=== PATIENT | male | born 1965 | race African-American/Black ===

== ENCOUNTER 2025-05-23 14:55 | Inpatient (IN) | payer MEDICAID ==
[2025-05-23] VITALS (13 sets, daily range): BP systolic 105–131; BP diastolic 81–93; PULSE 87–99; RESP 10–15; TEMP 36.7; O2SAT 97–100
[~2025-05-23] VITALS: Ht 170.2 cm; Wt 77.2 kg
[2025-05-23 15:32] LABS: BASOPHILS % 0.3 % (0.0-2.0); EOSINOPHILS % 0.4 % (0.0-5.0); HEMATOCRIT. 38.0 % (42.0-52.0); HEMOGLOBIN. 12.8 g/dL (14.0-18.0); LYMPHOCYTES % 11.8 % (20.0-50.0); MEAN PLATELET VOLUME 8.3 fl (7.4-10.4); MONOCYTES % 12.6 % (2.0-8.0); NEUTROPHILS % 74.9 % (40.0-76.0); PLATELET 229 x1000/uL (130-400); RED BLOOD CELL COUNT 4.41 mill/uL (4.7-6.1); RED CELL DISTRIBUTION WIDTH 12.8 % (11.6-14.6)
[2025-05-23] MEDS: SODIUM CHLORIDE 0.9% 1,000 ML IV ONE ×2 (15:36→17:28)
[2025-05-23 15:45] LABS: CREATININE 1.7 mg/dL (0.6-1.3); UREA NITROGEN BLOOD 16 mg/dL (9-23)
[2025-05-23 15:47] LABS: ASPARTATE AMINOTRANSFERASE 12 IU/L (<34); BILIRUBIN DIRECT 0.4 mg/dL (<=3.0); BILIRUBIN TOTAL 1.0 mg/dL (0.1-1.0)
[2025-05-23 15:48] LABS: PROTEIN TOTAL 6.3 g/dL (6.0-8.3)
[2025-05-23 15:53] LABS: TROPONIN I HIGH SENSITIVITY 491 ng/L (3.0-53)
[2025-05-23] MEDS: ENOXAPARIN 80MG/0.8ML SYR SUBCUT ONE (17:28)
[2025-05-23] MEDS: ASPIRIN 325MG TABLET PO ONE (17:28)
[2025-05-23] MEDS ORDERED: LIDOCAINE HCL 1% 20ML VIAL ONE (19:01)
[2025-05-23] MEDS ORDERED: HEPARIN 1000 UNITS/ML 10ML ONE ×2 (19:01→20:46)
[2025-05-23] MEDS ORDERED: IODIXANOL 320MG/ML 100 ML BOTTLE IV ONE (19:02)
[2025-05-23] MEDS ORDERED: IODIXANOL 320 MG/ML 150ML BOTTLE IV ONE (19:20)
[2025-05-23] MEDS ORDERED: MIDAZOLAM HCL 2 MG/2 ML VIAL ONE (19:38)
[2025-05-23] MEDS ORDERED: DIPHENHYDRAMINE 50MG/ML VIAL ONE (19:38)
[2025-05-23] MEDS ORDERED: FENTANYL CITRATE/PF 50MCG/ML 2ML VIAL ONE (19:38)
[2025-05-23] MEDS ORDERED: ATROPINE SULFATE 1MG/10ML SYR IV PRN (21:00)
[2025-05-23] MEDS: SODIUM CHL 0.45% + KCL 20MEQ/L 1,000 ML IV ONE (23:26)
[2025-05-24] VITALS (98 sets, daily range): BP systolic 107–166; BP diastolic 78–117; PULSE 87–110; RESP 10–22; TEMP 36.5–37.8; O2SAT 86–100
[2025-05-24] MEDS ORDERED: IOHEXOL-350 100 ML BOTTLE ONE (00:08)
[2025-05-24 06:59] LABS: BASOPHILS % 0.3 % (0.0-2.0); EOSINOPHILS % 0.3 % (0.0-5.0); HEMATOCRIT. 39.0 % (42.0-52.0); HEMOGLOBIN. 13.1 g/dL (14.0-18.0); LYMPHOCYTES % 16.4 % (20.0-50.0); MEAN PLATELET VOLUME 8.6 fl (7.4-10.4); MONOCYTES % 12.5 % (2.0-8.0); NEUTROPHILS % 70.5 % (40.0-76.0); PLATELET 228 x1000/uL (130-400); RED BLOOD CELL COUNT 4.49 mill/uL (4.7-6.1); RED CELL DISTRIBUTION WIDTH 13.3 % (11.6-14.6)
[2025-05-24 07:09] LABS: INR 1.1
[2025-05-24 07:11] LABS: CREATININE 1.2 mg/dL (0.6-1.3); UREA NITROGEN BLOOD 15 mg/dL (9-23)
[2025-05-24] MEDS: PANTOPRAZOLE SODIUM 40 MG/VIAL IV SCH (09:55)
[2025-05-24] MEDS: ENOXAPARIN 100MG/ML SYR SUBCUT SCH (09:56)
[2025-05-24] MEDS ORDERED: ASPI-1079 PO (19:05)
[2025-05-24] MEDS ORDERED: AMLO10TA80 PO (19:05)
[2025-05-24] MEDS ORDERED: FLUO20TA29 PO (19:05)
[2025-05-24] MEDS ORDERED: PALI1.5T2 PO (19:05)
[2025-05-24] MEDS ORDERED: PALI3TAB5 PO (19:05)
[2025-05-24] MEDS ORDERED: FAMO20TA8 PO (19:05)
[2025-05-24] MEDS ORDERED: DORZ10DR8 EACHEYE (19:05)
[2025-05-24] MEDS ORDERED: LATA2.5D7 EACHEYE (19:05)
[2025-05-24] MEDS ORDERED: LISI20TA31 PO (19:05)
[2025-05-24] MEDS ORDERED: ATOR20TA65 PO (19:05)
[2025-05-24 22:01] LABS: *AMPHETAMINES SCREEN URINE NEGATIVE (NEGATIVE); *BARBITURATES SCREEN URINE NEGATIVE (NEGATIVE); *BENZODIAZEPINES SCREEN URINE NEGATIVE (NEGATIVE); *COCAINE SCREEN URINE NEGATIVE (NEGATIVE); CANNABINOID URINE SCREEN NEGATIVE (NEGATIVE); ECSTASY MDMA SCREEN URINE NEGATIVE (NEGATIVE); METHADONE URINE SCREEN NEGATIVE (NEGATIVE); OPIATES URINE SCREEN NEGATIVE (NEGATIVE); PHENCYCLIDINE URINE SCREEN NEGATIVE (NEGATIVE)
[2025-05-24] MEDS: DORZOLAMIDE 2% OPHTH 10 ML BOTTLE EACHEYE SCH (22:48)
[2025-05-24] MEDS: LATANOPROST 0.005% OPHTH DROPS 2.5ML EACHEYE SCH (22:48)
[2025-05-24 23:48] LABS: CLARITY URINE CLEAR (CLEAR); COLOR URINE YELLOW (YELLOW); SPECIFIC GRAVITY URINE 1.019 (1.005-1.030)
[2025-05-24 23:49] LABS: GLUCOSE URINE NEGATIVE (NEGATIVE); KETONES URINE NEGATIVE (NEGATIVE); LEUKOCYTE ESTERASE URINE NEGATIVE (NEGATIVE); NITRITE URINE NEGATIVE (NEGATIVE); OCCULT BLOOD URINE 1+ (NEGATIVE); PH URINE 6.5 (4.5-8.0); PROTEIN URINE NEGATIVE (NEGATIVE); UROBILINOGEN URINE >8.0 E.U./dL (0.2-1.0)
[2025-05-25] VITALS (37 sets, daily range): BP systolic 113–160; BP diastolic 82–104; PULSE 86–108; RESP 13–26; TEMP 36.9–38.2; O2SAT 88–98
[2025-05-25 00:16] LABS: BACTERIA URINE NONE SEEN; RBC URINE 0-2 /hpf (0-2); SQUAMOUS EPITHELIAL CELL URINE NONE SEEN /lpf (RARE/1+); WBC URINE NONE SEEN /hpf (0-2); YEAST URINE NONE SEEN
[2025-05-25] MEDS: ACETAMINOPHEN 325MG TABLET PO PRN (00:20)
[2025-05-25] MEDS ORDERED: AMLODIPINE 10MG TABLET PO SCH (09:00)
[2025-05-25] MEDS ORDERED: PALIPERIDONE 1.5 MG PO SCH (09:00)
[2025-05-25] MEDS ORDERED: PALIPERIDONE 3 MG PO SCH (09:00)
[2025-05-25] MEDS: FLUOXETINE HCL 20MG CAPSULE PO SCH (09:00)
[2025-05-25] MEDS: ENOXAPARIN 80MG/0.8ML SYR SUBCUT SCH (09:01)
[2025-05-26] VITALS (7 sets, daily range): BP systolic 117–153; BP diastolic 81–119; PULSE 84–112; RESP 14–17; TEMP 36.7–37.1; O2SAT 92–100
[2025-05-26 11:41] LABS: BASOPHILS % 0.5 % (0.0-2.0); EOSINOPHILS % 1.8 % (0.0-5.0); HEMATOCRIT. 38.8 % (42.0-52.0); HEMOGLOBIN. 13.2 g/dL (14.0-18.0); LYMPHOCYTES % 18.6 % (20.0-50.0); MEAN PLATELET VOLUME 9.0 fl (7.4-10.4); MONOCYTES % 12.8 % (2.0-8.0); NEUTROPHILS % 66.3 % (40.0-76.0); PLATELET 259 x1000/uL (130-400); RED BLOOD CELL COUNT 4.56 mill/uL (4.7-6.1); RED CELL DISTRIBUTION WIDTH 12.7 % (11.6-14.6)
[2025-05-26 12:10] LABS: CREATININE 1.0 mg/dL (0.6-1.3); UREA NITROGEN BLOOD 11 mg/dL (9-23)
[2025-05-26] MEDS: POTASSIUM CHLORIDE 20MEQ TABLET SR PO SCH (15:04)
[2025-05-27 00:08] VITALS: BP 143/94; PULSE 93; RESP 17; TEMP 36.7; O2SAT 98
[2025-05-27 04:27] VITALS: BP 121/87; PULSE 90; RESP 12; TEMP 36.8; O2SAT 97
[2025-05-27 07:21] LABS: CREATININE 1.0 mg/dL (0.6-1.3); UREA NITROGEN BLOOD 10 mg/dL (9-23)
[2025-05-27 07:24] LABS: BASOPHILS % 0.6 % (0.0-2.0); EOSINOPHILS % 2.3 % (0.0-5.0); HEMATOCRIT. 40.3 % (42.0-52.0); HEMOGLOBIN. 13.4 g/dL (14.0-18.0); LYMPHOCYTES % 23.6 % (20.0-50.0); MEAN PLATELET VOLUME 8.9 fl (7.4-10.4); MONOCYTES % 11.8 % (2.0-8.0); NEUTROPHILS % 61.7 % (40.0-76.0); PLATELET 296 x1000/uL (130-400); RED BLOOD CELL COUNT 4.71 mill/uL (4.7-6.1); RED CELL DISTRIBUTION WIDTH 12.6 % (11.6-14.6)
[2025-05-27 08:00] VITALS: BP 125/93; PULSE 87; RESP 13; TEMP 36.9; O2SAT 98
[2025-05-27 12:00] VITALS: BP 131/101; PULSE 91; RESP 15; TEMP 36.7; O2SAT 99
[2025-05-27 16:00] VITALS: BP 124/95; PULSE 87; RESP 18; TEMP 36.8; O2SAT 99
[2025-05-27 20:00] VITALS: BP 137/85; PULSE 92; RESP 13; TEMP 37.3; O2SAT 99
[2025-05-28] VITALS: BP 126/82; PULSE 77; RESP 20; TEMP 32.2; O2SAT 96
[2025-05-28 04:00] VITALS: BP 134/94; PULSE 81; RESP 15; TEMP 36.9; O2SAT 98
[2025-05-28 08:00] VITALS: BP 138/98; PULSE 84; RESP 13; TEMP 36.9; O2SAT 99
[2025-05-28 08:11] LABS: BASOPHILS % 0.8 % (0.0-2.0); EOSINOPHILS % 2.1 % (0.0-5.0); HEMATOCRIT. 39.8 % (42.0-52.0); HEMOGLOBIN. 13.7 g/dL (14.0-18.0); LYMPHOCYTES % 22.7 % (20.0-50.0); MEAN PLATELET VOLUME 8.7 fl (7.4-10.4); MONOCYTES % 12.2 % (2.0-8.0); NEUTROPHILS % 62.2 % (40.0-76.0); PLATELET 334 x1000/uL (130-400); RED BLOOD CELL COUNT 4.71 mill/uL (4.7-6.1); RED CELL DISTRIBUTION WIDTH 12.5 % (11.6-14.6)
[2025-05-28 08:39] LABS: CREATININE 1.0 mg/dL (0.6-1.3); UREA NITROGEN BLOOD 13 mg/dL (9-23)
[2025-05-28] MEDS: CLONIDINE 0.1MG TABLET PO PRN (09:40)
[2025-05-28] MEDS ORDERED: APIX5TAB MT (10:26)
[2025-05-28] MEDS ORDERED: ACET-2708 MT (10:27)
[2025-05-28 12:04] VITALS: BP 108/88; PULSE 84; RESP 15; TEMP 98.7
== END 2025-05-28 13:05 | disposition home health service (06) | DRG 134 ==
LOC: ER 14:55 → EDBEDREQTM 17:35 → EDBEDREQ 17:35 → EDBEDREQSVC 17:35 → ENRESERV 20:16 → MICUSO 21:51 → 3WST 05-25 08:31
PROVIDERS: ADMIT Internal Medicine; ATTEND Internal Medicine
PROC: 02CR3ZZ Extirpation of Matter from Left Pulmonary Artery, Percutaneous Approach (ICD-10-PCS; principal; 2025-05-23)
PROC: 02CQ3ZZ Extirpation of Matter from Right Pulmonary Artery, Percutaneous Approach (ICD-10-PCS; 2025-05-23)
PROC: B31TYZZ Fluoroscopy of Left Pulmonary Artery using Other Contrast (ICD-10-PCS; 2025-05-23)
PROC: B31SYZZ Fluoroscopy of Right Pulmonary Artery using Other Contrast (ICD-10-PCS; 2025-05-23)
PROC: 4A023N6 Measurement of Cardiac Sampling and Pressure, Right Heart, Percutaneous Approach (ICD-10-PCS; 2025-05-23)
PROC: B519YZZ Fluoroscopy of Inferior Vena Cava using Other Contrast (ICD-10-PCS; 2025-05-23)
PROC: B51BYZZ Fluoroscopy of Right Lower Extremity Veins using Other Contrast (ICD-10-PCS; 2025-05-23)
DX: I26.02 Saddle embolus of pulmonary artery with acute cor pulmonale (principal); R57.0 Cardiogenic shock; N17.0 Acute kidney failure with tubular necrosis; J96.01 Acute respiratory failure with hypoxia; D68.59 Other primary thrombophilia; G43.909 Migraine, unspecified, not intractable, without status migrainosus; R00.0 Tachycardia, unspecified; K76.89 Other specified diseases of liver; H54.8 Legal blindness, as defined in USA; I10 Essential (primary) hypertension; Z79.01 Long term (current) use of anticoagulants; Z86.711 Personal history of pulmonary embolism; Z86.73 Personal history of transient ischemic attack (TIA), and cerebral infarction without residual deficits
CPT/HCPCS: 36415; 37184; 37185; 71045; 71275; 75820; 75825; 80048; 80076; 80305; 81003; 83735; 83880; 84145; 84484; 85025; 85347; 85379; 93005; 93306; 93970; 97116; 97162; 99291; A4606; C1769; C1887; C1893; J1200; J1644; J1650; J2003; J2250; J2470; J3010; J3480; J7030; Q9967; C1757